=== PATIENT | female | born 1995 | race Caucasian/White ===

== ENCOUNTER 2017-12-30 18:06 | Emergency (ER) | payer OTHER ==
[~2017-12-30] VITALS: Ht 149.9 cm; Wt 36.7 kg
[2017-12-30] MEDS ORDERED: OBSTETRIX DHA1 EACH (18:12)
== END 2017-12-30 20:31 | disposition home or self-care (01) ==
LOC: ER 18:06
DX: O26.891 Other specified pregnancy related conditions, first trimester (principal); R10.30 Lower abdominal pain, unspecified; Z34.01 Encounter for supervision of normal first pregnancy, first trimester